=== PATIENT | female | born 1965 | race Caucasian/White ===

== ENCOUNTER 2020-02-09 10:33 | Emergency (ER) | payer OTHER, SELFPAY ==
--- NOTE | 2020-02-09 10:48 | ED.EAR ---
HPI - Ear Problem General Chief complaint: Ear Problems Stated complaint: lt ear pain Time Seen by Provider: 02/09/20 10:48 Source: patient Mode of arrival: ambulatory Limitations: language barrier History of Present Illness HPI Narrative: 54 y/o female presenting with left ear pain and swelling for the last 10 days. She denies injury, fever, chills, drainage. Hearing is slightly muffled. She has not taken anything for the pain. Related Data Previous Rx's Medication Instructions Recorded ciprofloxacin-hydrocortisone 3 drp OTIC (EARS) BID 7 Days ml 02/09/20 [Cipro HC] ciprofloxacin-hydrocortisone 3 drp OTIC (EARS) BID 7 Days #10 ml 02/09/20 [Cipro HC] ibuprofen 600 mg PO Q8H PRN #20 tab 02/09/20 Allergies Allergy/AdvReac Type Severity Reaction Status Date / Time No Known Allergies Allergy Unverified 01/14/20 16:38 [No Known Allergies*] none Allergy Unknown Uncoded 11/25/18 00:00 Review of Systems Review of Systems: Constitutional: No Fever, No Chills ENT/Mouth: No sore throat, No Rhinorrhea, No Swallowing Difficulty, + ear pain, +facial pain, No dental pain Cardiovascular: No Chest Pain, No SOB, No Orthopnea, No Edema Respiratory: No Cough, No Sputum, No Wheezing, No dyspnea Skin: No Skin Lesions, No rash Neuro: No Weakness, No Numbness, No Dizziness, + Headache Heme/Lymph: No Bruising, No Lymphadenopathy PMFSH Past Medical History Medical History Thyroid disorder Social History Social History Advance Directives: No Advance Directives Information Provided: Yes Physical Exam Vital Signs: Vital Signs: Vital Signs Temp Pulse Resp BP Pulse Ox 02/09/20 11:03 97.4 F 87 16 132/81 97 Body Mass Index 28.7 Appearance: Alert. Oriented X3. No acute distress. Ear exam: right ear normal, left ear with EAC swelling and erythema, tender pinna movement. TM normal. Neck: normal inspection, no lymphadenopathy. CVS: Normal heart rate and rhythm. Pulses normal. Respiratory: No respiratory distress. Skin: Skin warm and dry. Normal skin color. Normal skin turgor. No rashes. Extremities: Full ROM, no swelling Neuro: Oriented X 3. No motor deficit. No sensory deficit. Course Course Course Narrative: exam consistent with acute oxitis externa. no need for ear wick at this time. antibiotic drops with steroid sent to pharmacy. no TM perforation. stable for d/c. encouraged to f/u with her PCP. ear precautions discussed. Discharge Plan Discharge Clinical Impression: Otitis externa Qualifiers: Otitis externa type: diffuse Chronicity: acute Laterality: left Qualified Code(s): H60.312 - Diffuse otitis externa, left ear Patient Disposition: Home, Self-Care Instructions: Otitis Externa (ED) Additional Instructions: Do not get your ear wet for 1 week. If you have worsening pain, loss of hearing, fever, chills despite antibiotic drops call your doctor or come back to the ER for further evaluation. Prescriptions: New Cipro HC 0.2-1 % drops,suspension 3 drp otic (ears) BID 7 Days RF: 0 ibuprofen 600 mg tablet 600 mg PO Q8H PRN (Reason: pain) Qty: 20 RF: 0 Cipro HC 0.2-1 % drops,suspension 3 drp otic (ears) BID 7 Days Qty: 10 RF: 0 Interventions: ED Discharge Assessment Last Done: 02/09/20 11:33 Discharge Date/Time: 02/09/20 11:36
[2020-02-09 11:03] VITALS: BP 132/81; PULSE 87; RESP 16; TEMP 36.3; O2SAT 97; BMI 28.7
== END 2020-02-09 11:36 | disposition home or self-care (01) ==
PROVIDERS: Emergency Provider Emergency Medicine; PCP Internal Medicine
DX: H60.312 Diffuse otitis externa, left ear (principal)
CPT/HCPCS: 99283

== ENCOUNTER 2020-04-11 09:45 | Outpatient (REF) | payer OTHER, SELFPAY ==
[2020-04-11 10:57] LABS: Alanine Aminotransferase 16 U/L (0-31); Albumin Level 4.4 g/dL (3.5-5.0); Alkaline Phosphatase 99 U/L (39-117); Anion Gap 12 (12-20); Aspartate Amino Transferase 17 U/L (5-31); Bilirubin Total 0.4 mg/dL (0.0-1.0); Blood Urea Nitrogen 5 mg/dL (9-16); Calcium 9.2 mg/dL (8.4-10.2); Carbon Dioxide 29 mmol/L (22-29); Chloride 105 mmol/L (96-108); Cholesterol 208 mg/dL; Estimated Glomerular Filt Rate > 60; Glucose Fasting 109 mg/dL (60-99); HDL Cholesterol 38 mg/dL; LDL Cholesterol Calculated 121 mg/dl; Potassium 4.1 mmol/l (3.3-5.1); Sodium 142 mmol/L (135-145); Total Protein 7.2 g/dL (6.5-8.0); Triglycerides 249 mg/dL
[2020-04-11 11:11] LABS: TSH reflex Free T4 0.02 mIU/mL (0.32-4.0)
[2020-04-11 12:02] LABS: Free T4 (Free Thyroxine) 1.37 ng/dL (0.71-1.85)
== END 2020-04-11 09:46 | disposition home or self-care (01) ==
LOC: HO.LAB 09:45
PROVIDERS: Visit Provider Internal Medicine
DX: E78.2 Mixed hyperlipidemia (principal); E55.9 Vitamin D deficiency, unspecified; E06.3 Autoimmune thyroiditis
CPT/HCPCS: 80053; 80061; 82306; 84439; 84443

== ENCOUNTER 2020-04-19 10:56 | Outpatient (REF) | payer OTHER, SELFPAY ==
--- NOTE | 2020-04-19 11:00 | MM_ITS ---
EXAMINATION: MM SCREENING DIGITAL BREAST TOMOSYNTHESIS, BILATERAL CLINICAL INFORMATION: Screening. Asymptomatic. The lifetime risk of breast cancer based on the Tyrer-Cuzick Model is 7%. COMPARISON: Mammography: 04/14/2019, 04/08/2018, 05/13/2014 TECHNIQUE: Digital breast tomosynthesis is performed in both the craniocaudal and mediolateral oblique views along with computer-aided detection (CAD). Synthesized 2D images are generated from the tomosynthesis. FINDINGS: The breasts are heterogeneously dense, which may obscure small masses (ACR BI-RADS breast composition Category c). There are no significant masses, abnormal calcifications, or other abnormalities. No significant changes from prior studies. The axilla are unremarkable. MM/MM tomosynthesis screening BI IMPRESSION: No mammographic evidence of malignancy. ASSESSMENT: BI-RADS 1: Negative RECOMMENDATION: Routine annual mammography screening. This patient's information was entered into a reminder system with a target due date for their next mammogram.
== END 2020-04-19 10:57 | disposition home or self-care (01) ==
LOC: HO.MAMMO 10:56
PROVIDERS: PCP Internal Medicine; Visit Provider Internal Medicine
DX: Z12.31 Encounter for screening mammogram for malignant neoplasm of breast (principal)
CPT/HCPCS: 77063; 77067

== ENCOUNTER 2020-08-26 07:48 | Outpatient (REF) | payer OTHER, SELFPAY ==
[2020-08-26 09:19] LABS: Alanine Aminotransferase 22 U/L (0-31); Albumin Level 4.3 g/dL (3.5-5.0); Alkaline Phosphatase 107 U/L (39-117); Anion Gap 12 (12-20); Aspartate Amino Transferase 17 U/L (5-31); Bilirubin Total 0.6 mg/dL (0.0-1.0); Blood Urea Nitrogen 12 mg/dL (9-16); Calcium 9.6 mg/dL (8.4-10.2); Carbon Dioxide 28 mmol/L (22-29); Chloride 106 mmol/L (96-108); Cholesterol 250 mg/dL; Estimated Glomerular Filt Rate 54; Glucose Fasting 113 mg/dL (60-99); HDL Cholesterol 34 mg/dL; LDL Cholesterol Calculated 137 mg/dl; Potassium 4.3 mmol/L (3.3-5.1); Sodium 142 mmol/L (135-145); Total Protein 7.1 g/dL (6.5-8.0); Triglycerides 398 mg/dL
[2020-08-26 09:42] LABS: Thyroid Stimulating Hormone 0.57 uIU/mL (0.32-4.0)
[2020-08-31 10:11] LABS: Vitamin D 25-OH, D2 <4 ng/mL; Vitamin D 25-OH, D3 25 ng/mL; Vitamin D 25-OH, Total 25 ng/mL (30-100)
== END 2020-08-26 07:49 | disposition home or self-care (01) ==
LOC: HO.LAB 07:48
PROVIDERS: PCP Internal Medicine; Visit Provider Internal Medicine
DX: E78.2 Mixed hyperlipidemia (principal); E55.9 Vitamin D deficiency, unspecified; E03.9 Hypothyroidism, unspecified
CPT/HCPCS: 36415; 80053; 80061; 82306; 84443

== ENCOUNTER → 2020-11-02 10:03 | Outpatient (REF) | payer OTHER, SELFPAY ==
--- NOTE | 2020-11-02 10:30 | CA_ITS ---
Transthoracic Echocardiogram Patient (Last, First, Middle): Marya Hyatt, Gender: Female Date of : 1965 Age: 55 Procedure Date: 11/02/2020 Procedure Type: Transthoracic Echocardiogram Location: OP Height: 154.94 cm Weight: 73.48 kg BSA: 1.73 m2 Heart Rate: bpm BP: 146 / 88 mmHg Inspector Final Assembly Conveyor Line: Referring MD: Angelo Tan MD Symptoms: I42.9 NON ISCHEMIC CARDIOMYOPATHY Study Quality: Fair ECG Rhythm: Sinus Conclusions: - The left ventricular systolic function is mildly decreased. The visually estimated ejection fraction is between 45-50%. - No obvious valvular pathology seen on this study. Findings Left Ventricle Normal left ventricular cavity size. There is normal left ventricular wall thickness. The left ventricular systolic function is mildly decreased. The visually estimated ejection fraction is between 45-50%. There is mild global hypokinesis. E/E prime ratio is between 8 and 15 consistent with indeterminate filling pressures. Evidence suggests grade I (mild) diastolic dysfunction. Right Ventricle Normal right ventricular cavity size and systolic function. Atria The left atrium is normal in size. Aortic Valve There is a normal trileaflet aortic valve. There is no aortic valve stenosis. There is no aortic valve regurgitation. Mitral Valve There is mild anterior mitral leaflet thickening. There is trace mitral valve regurgitation. There is no mitral valve stenosis. Pulmonic Valve The pulmonic valve was not well visualized. Tricuspid Valve Normal tricuspid valve structure. There is trace tricuspid valve regurgitation. The pulmonary artery systolic pressure is normal. Great Vessels The aortic annulus, sinuses of valsalva, asc aorta, and aortic arch are normal in size. Venous The inferior vena cava is normal in size and collapses greater than 50% with inspiration. Pericardium/Pleural There is no evidence of pericardial effusion. Prior Study Comparison No significant change compared to prior study dated: 04/08/2018. Recommendations, Care & Conclusions No obvious valvular pathology seen on this study. Measurements 2D Linear Measurements RVIDd: 2.16 RVIDd Index: 1.25 IVSd: 1.15 0.6-0.9/0.6-1.0 cm LVIDd: 5.35 3.9-5.3/4.2-5.9 cm LVIDd Index: 3.09 2.4-3.2/2.2-3.1 cm/m2 LVIDs: 3.62 2.0-3.6 cm LVPWd: 0.92 0.7-1.1 cm Ao Root: 3.30 2.1-3.5 cm LA Diam: 3.00 2.7-3.8/3.0-4.0 cm LAIDs Index: 1.73 1.5-2.3 cm/m2 LV Mass: 265.78 67-162/88-224 g LV Mass Index: 153.63 43-95/49-115 g/m2 LVOT Diam: 2.10 3.0+(-)1.3 cm 2D Systolic Function EF 4C: 29.10 >55% EF 2C: 67.10 >55% EF BiP: 51.20 >55% Mitral Valve MV Pk E: 0.54 MV PK A: 0.46 MV Decel Time: 294.00 E/A: 1.20 E'Lateral: 5.11 E'Medial: 4.46 E/E' Med: 12.00 E/E' Lat: 10.50 Aortic Valve AoV Pk Figueroa: 1.04 AoV Mn Figueroa: 0.76 AoV VTI: 0.22 AoV Pk Grad: 4.00 Aov Mn Grad: 3.00 JAMES Cont.VTI: 2.07 LVOT LVOT Pk Figueroa: 0.68 LVOT Mn Figueroa: 0.43 LVOT VTI: 0.13 LVOT Pk Grad: 2.00 LVOT Mn Grad: 1.00 LVOT Diam: 2.10 LVOT Area: 3.46 Diastolic Function MV Pk E: 0.54 MV Pk A: 0.46 E/A: 1.20 E'Medial: 4.46 E/E' Med: 12.00 E' Laterial: 5.11 E/E' Lat: 10.50 Tricuspid Valve TR Pk Figueroa: 1.99 TR Pk Grad: 16.00 RA Press: 3.00 RVSP: 19.00 Great Vessels Aorta Ao Root-2D: 3.30 2.0-3.7 cm Ao Asc: 3.30 2.1-3.4 cm Ao Arch: 2.60 Updated in Other Vendor System with Status of Final Angelo Tan MD electronically signed on 11/03/2020 11:30:06 AM with status of Final
== END ==
LOC: HO.CARD 10:03
PROVIDERS: Visit Provider Internal Medicine
DX: I42.9 Cardiomyopathy, unspecified (principal)
CPT/HCPCS: 93306

== ENCOUNTER → 2020-11-28 12:17 | Outpatient (BNVA) | payer OTHER, SELFPAY | PROVIDERS: PCP Internal Medicine; Referring Provider Internal Medicine; Visit Provider Internal Medicine | DX: I10 Essential (primary) hypertension (principal); I42.8 Other cardiomyopathies; E03.9 Hypothyroidism, unspecified; E55.9 Vitamin D deficiency, unspecified; E78.2 Mixed hyperlipidemia; F17.210 Nicotine dependence, cigarettes, uncomplicated; Z79.899 Other long term (current) drug therapy | CPT/HCPCS: 93005; 99212 ==

== ENCOUNTER 2020-12-28 08:26 | Outpatient (REF) | payer OTHER, SELFPAY ==
--- NOTE | ~2020-12-28 | FL_ITS ---
EXAMINATION: XR GI SERIES CLINICAL INFORMATION: Gastroesophageal reflux disease without esophagitis. COMPARISON: None. TECHNIQUE: Air-contrast upper GI examination. FINDINGS: There is normal elevation of the soft palate while saying candy . There is normal apposition of the focal cords when saying E . There is no evidence of nasopharyngeal reflux or tracheal aspiration. Cricopharyngeal hypertrophy is present without evidence of Zenker's diverticulum. There is normal esophageal motility without mucosal irregularity. No persistent stricture was evident. No gastroesophageal reflux was seen including with water siphon test. There are some thickened folds with some diminished distensibility seen involving the distal antrum. No definite ulceration was appreciated. There was no delay in gastric emptying. The prominent folds extend into the base of the duodenum. The remainder of the duodenal sweep appeared unremarkable. FLUOROSCOPY TIME: 2.6 minutes. DOSE AREA PRODUCT: 12.017 Gy-cm2 (nieves-centimeter squared). FL/FL upper GI series IMPRESSION: No gastroesophageal reflux elicited during the study. Region of some diminished distensibility with prominent folds in the antrum extending into the duodenal bulb. No definite ulceration is appreciated. Above findings could be related to antritis or less likely infiltrative process. Follow-up upper GI examination or endoscopy would be of help for future follow-up if patient remains symptomatic.
== END 2020-12-28 08:27 | disposition home or self-care (01) ==
LOC: HO.XRAY 08:26
PROVIDERS: PCP Internal Medicine; Visit Provider Internal Medicine
DX: K21.9 Gastro-esophageal reflux disease without esophagitis (principal)
CPT/HCPCS: 74240

== ENCOUNTER 2021-03-14 08:50 | Outpatient (REF) | payer OTHER, SELFPAY ==
[2021-03-14 10:05] LABS: Alanine Aminotransferase 23 U/L (0-31); Albumin Level 4.4 g/dL (3.5-5.0); Alkaline Phosphatase 98 U/L (39-117); Anion Gap 12 (12-20); Aspartate Amino Transferase 16 U/L (5-31); Bilirubin Total 0.8 mg/dL (0.0-1.0); Blood Urea Nitrogen 11 mg/dL (9-16); Calcium 10.1 mg/dL (8.4-10.2); Carbon Dioxide 29 mmol/L (22-29); Chloride 105 mmol/L (96-108); Cholesterol 224 mg/dL; Estimated Glomerular Filt Rate 48; Glucose Fasting 118 mg/dL (60-99); HDL Cholesterol 34 mg/dL; LDL Cholesterol Calculated 124 mg/dl; Sodium 142 mmol/L (135-145); Triglycerides 332 mg/dL
[2021-03-14 10:26] LABS: TSH reflex Free T4 0.89 uIU/mL (0.32-4.0)
[2021-03-18 13:41] LABS: Vitamin D 25-OH, D2 <4 ng/mL; Vitamin D 25-OH, D3 20 ng/mL; Vitamin D 25-OH, Total 20 ng/mL (30-100)
== END 2021-03-14 08:51 | disposition home or self-care (01) ==
LOC: HO.LAB 08:50
PROVIDERS: PCP Internal Medicine; Visit Provider Internal Medicine
DX: E03.9 Hypothyroidism, unspecified (principal); E78.2 Mixed hyperlipidemia; E55.9 Vitamin D deficiency, unspecified
CPT/HCPCS: 36415; 80053; 80061; 82306; 84443

== ENCOUNTER 2021-05-08 08:34 | Outpatient (REF) | payer OTHER, SELFPAY ==
[2021-05-08 12:00] LABS: Binax Internal Control QC Valid; Binax Now Covid-19 Ag Positive (Negative)
== END 2021-05-08 08:35 | disposition home or self-care (01) ==
LOC: HO.LAB 08:34
PROVIDERS: Visit Provider Internal Medicine
DX: Z20.822 Contact with and (suspected) exposure to COVID-19 (principal)
CPT/HCPCS: 36415; C9803

== ENCOUNTER 2021-07-24 08:36 | Outpatient (REF) | payer OTHER, SELFPAY ==
[2021-07-24 09:55] LABS: Alanine Aminotransferase 33 U/L (0-31); Albumin Level 4.4 g/dL (3.5-5.0); Alkaline Phosphatase 83 U/L (39-117); Anion Gap 11 (12-20); Aspartate Amino Transferase 23 U/L (5-31); Bilirubin Total 0.8 mg/dL (0.0-1.0); Blood Urea Nitrogen 10 mg/dL (9-16); Calcium 9.4 mg/dL (8.4-10.2); Carbon Dioxide 28 mmol/L (22-29); Chloride 106 mmol/L (96-108); Cholesterol 230 mg/dL; Estimated Glomerular Filt Rate 55; Glucose Fasting 112 mg/dL (60-99); HDL Cholesterol 33 mg/dL; LDL Cholesterol Calculated 151 mg/dl; Potassium 4.1 mmol/L (3.3-5.1); Sodium 141 mmol/L (135-145); Total Protein 6.9 g/dL (6.5-8.0); Triglycerides 231 mg/dL
[2021-07-24 10:18] LABS: Thyroid Stimulating Hormone 0.49 uIU/mL (0.32-4.0)
[2021-07-28 13:06] LABS: Vitamin D 25-OH, D2 <4 ng/mL; Vitamin D 25-OH, D3 12 ng/mL; Vitamin D 25-OH, Total 12 ng/mL (30-100)
== END 2021-07-24 08:37 | disposition home or self-care (01) ==
LOC: HO.LAB 08:36
PROVIDERS: PCP Internal Medicine; Visit Provider Internal Medicine
DX: E78.5 Hyperlipidemia, unspecified (principal); I10 Essential (primary) hypertension; E03.9 Hypothyroidism, unspecified; E55.9 Vitamin D deficiency, unspecified
CPT/HCPCS: 36415; 80053; 80061; 82306; 84443

== ENCOUNTER → 2021-08-03 10:12 | Outpatient (REF) | payer OTHER, SELFPAY ==
--- NOTE | ~2021-08-03 | XR_ITS ---
EXAMINATION: XR CHEST CLINICAL INFORMATION: Dyspnea COMPARISON: 08/31/2014 TECHNIQUE: 2 views of the chest were obtained. FINDINGS: The lungs are well expanded. There is no focal consolidation, edema, or effusion. No pneumothorax. The cardiomediastinal silhouette is within normal limits. No acute osseous abnormality. Mild degenerative change of the spine. XR/XR chest 2V IMPRESSION: Clear lungs.
--- NOTE | ~2021-08-03 | XR_ITS ---
EXAMINATION: XR KNEE, RIGHT CLINICAL INFORMATION: Right knee pain COMPARISON: 01/05/2019 TECHNIQUE: Four views of the right knee. This includes upright AP view. FINDINGS: No fracture or subluxation. Mild medial compartment joint space narrowing. Small marginal osteophytes. No joint effusion. Enthesophyte formation of the patella. The soft tissues are unremarkable. XR/XR knee RT 2V IMPRESSION: Mild degenerative change of the medial compartment. Similar to prior.
--- NOTE | 2021-08-03 10:18 | ECG_ITS ---
Test Reason : PRECORDIAL PAIN Blood Pressure : / mmHG Vent. Rate : 056 BPM Atrial Rate : 056 BPM P-R Int : 150 ms QRS Dur : 094 ms QT Int : 440 ms P-R-T Axes : 070 -01 012 degrees QTc Int : 424 ms Sinus bradycardia T wave abnormality, consider anterior ischemia Abnormal ECG When compared to the previous EKG of No significant changes seen Referred By: Natalia Akbar Electronically Signed By:CHANCE LEIVA MD
== END ==
LOC: HO.CARD 10:12
PROVIDERS: PCP Internal Medicine; Visit Provider Internal Medicine
DX: R07.2 Precordial pain (principal); R06.00 Dyspnea, unspecified; M25.561 Pain in right knee
CPT/HCPCS: 71046; 73560; 93005

== ENCOUNTER → 2021-08-22 10:45 | Outpatient (BNVA) | payer OTHER, SELFPAY | PROVIDERS: PCP Internal Medicine; Visit Provider Obstetrics & Gynecology | DX: I42.8 Other cardiomyopathies (principal); I10 Essential (primary) hypertension; R07.2 Precordial pain; F17.210 Nicotine dependence, cigarettes, uncomplicated; Z01.419 Encounter for gynecological examination (general) (routine) without abnormal findings | CPT/HCPCS: 99212 ==

== ENCOUNTER 2021-08-25 10:34 | Outpatient (REF) | payer OTHER, SELFPAY ==
--- NOTE | ~2021-08-25 | MM_ITS ---
EXAMINATION: MM SCREENING DIGITAL BREAST TOMOSYNTHESIS, BILATERAL CLINICAL INFORMATION: Screening. Asymptomatic. The lifetime risk of breast cancer based on the Tyrer-Cuzick Model is 6%. COMPARISON: Mammography: 04/19/2020, 04/14/2019, 04/08/2018 TECHNIQUE: Digital breast tomosynthesis is performed in both the craniocaudal and mediolateral oblique views along with computer-aided detection (CAD). Synthesized 2D images are generated from the tomosynthesis. FINDINGS: The breasts are heterogeneously dense, which may obscure small masses (ACR BI-RADS breast composition Category c). There are no significant masses, abnormal calcifications, or other abnormalities. Parenchymal pattern is similar to prior studies. The axilla and skin contours are unremarkable. MM/MM tomosynthesis screening BI IMPRESSION: No mammographic evidence of malignancy. ASSESSMENT: BI-RADS 1: Negative RECOMMENDATION: Routine annual mammography screening. This patient's information was entered into a reminder system with a target due date for their next mammogram.
== END 2021-08-25 10:35 | disposition home or self-care (01) ==
LOC: HO.MAMMO 10:34
PROVIDERS: Visit Provider Internal Medicine
DX: Z12.31 Encounter for screening mammogram for malignant neoplasm of breast (principal)
CPT/HCPCS: 77063; 77067

== ENCOUNTER 2021-12-19 08:13 | Outpatient (REF) | payer OTHER, SELFPAY ==
[2021-12-19 09:42] LABS: Alanine Aminotransferase 23 U/L (0-31); Albumin Level 4.2 g/dL (3.5-5.0); Alkaline Phosphatase 86 U/L (39-117); Anion Gap 13 (12-20); Aspartate Amino Transferase 16 U/L (5-31); Bilirubin Total 0.7 mg/dL (0.0-1.0); Blood Urea Nitrogen 7 mg/dL (9-16); Calcium 9.4 mg/dL (8.4-10.2); Carbon Dioxide 29 mmol/L (22-29); Chloride 105 mmol/L (96-108); Cholesterol 228 mg/dL; Estimated Glomerular Filt Rate 59; Glucose Fasting 110 mg/dL (60-99); HDL Cholesterol 31 mg/dL; Potassium 4.2 mmol/L (3.3-5.1); Sodium 143 mmol/L (135-145); Total Protein 6.9 g/dL (6.5-8.0); Triglycerides 494 mg/dL
[2021-12-19 10:04] LABS: Thyroid Stimulating Hormone 0.55 uIU/mL (0.32-4.0)
[2021-12-21 04:45] LABS: NT-proBNP 40 pg/mL
== END 2021-12-19 08:14 | disposition home or self-care (01) ==
LOC: HO.LAB 08:13
PROVIDERS: PCP Internal Medicine; Visit Provider Internal Medicine
DX: E03.9 Hypothyroidism, unspecified (principal); I10 Essential (primary) hypertension; I42.8 Other cardiomyopathies; E78.5 Hyperlipidemia, unspecified
CPT/HCPCS: 36415; 80053; 80061; 83880; 84443

== ENCOUNTER 2022-01-16 11:09 | Outpatient (REF) | payer OTHER, SELFPAY ==
--- NOTE | ~2022-01-16 | XR_ITS ---
EXAMINATION: XR ABDOMEN KUB CLINICAL INDICATION: Dorsalgia COMPARISON: None TECHNIQUE: AP view of the abdomen. FINDINGS: The bowel gas pattern is normal with no evidence of ileus or obstruction. There is moderate stool burden present within the transverse and right colon. No unusual soft tissue calcifications are noted. The bones are unremarkable. XR/XR KUB IMPRESSION: No significant abnormality identified.
== END 2022-01-16 11:10 | disposition home or self-care (01) ==
LOC: HO.XRAY 11:09
PROVIDERS: PCP Internal Medicine; Visit Provider Internal Medicine
DX: M54.9 Dorsalgia, unspecified (principal)
CPT/HCPCS: 74018

== ENCOUNTER → 2022-02-01 07:57 | Outpatient (BNVA) | payer OTHER, SELFPAY | PROVIDERS: PCP Internal Medicine; Referring Provider Internal Medicine; Visit Provider Internal Medicine | DX: R07.2 Precordial pain (principal); I42.8 Other cardiomyopathies; I10 Essential (primary) hypertension; Z79.899 Other long term (current) drug therapy | CPT/HCPCS: 93005; 99212 ==

== ENCOUNTER 2022-02-09 10:04 | Outpatient (REF) | payer OTHER, SELFPAY ==
[2022-02-09 11:39] LABS: Anion Gap 14 (12-20); Blood Urea Nitrogen 13 mg/dL (9-16); Carbon Dioxide 26 mmol/L (22-29); Chloride 107 mmol/L (96-108); Estimated Glomerular Filt Rate > 60; Glucose Random 102 mg/dL (60-115); Potassium 4.1 mmol/L (3.3-5.1); Sodium 143 mmol/L (135-145)
== END 2022-02-09 10:05 | disposition home or self-care (01) ==
LOC: HO.LAB 10:04
PROVIDERS: PCP Internal Medicine; Visit Provider Internal Medicine
DX: I10 Essential (primary) hypertension (principal)
CPT/HCPCS: 36415; 80048

== ENCOUNTER 2022-02-26 10:01 | Outpatient (REF) | payer OTHER, SELFPAY ==
[2022-02-27 13:45] LABS: H Pylori Breath Test Negative (Negative)
== END 2022-02-26 10:02 | disposition home or self-care (01) ==
LOC: HO.LNP 10:01
PROVIDERS: PCP Internal Medicine; Visit Provider Physician Assistant
DX: K21.9 Gastro-esophageal reflux disease without esophagitis (principal); A04.8 Other specified bacterial intestinal infections; R10.13 Epigastric pain; Z86.010 Personal history of colon polyps
CPT/HCPCS: 83013; 99202; 99212

== ENCOUNTER → 2022-03-02 08:05 | Outpatient (REF) | payer OTHER, SELFPAY ==
--- NOTE | ~2022-03-02 | NM_ITS ---
Exercise Myocardial perfusion study Indication: Precordial chest pain to evaluate for myocardial ischemia Technique: The patient was brought in for an exercise perfusion study on 03/02/2022. Patient performed exercise as per Gage protocol and was injected 25 mCi of sestamibi was given intravenously one target HR was achieved. Images were obtained using the SPECT gamma camera interlaced with the gating device. Images were obtained in supine position. Resting perfusion study was performed on 03/05/2022. Patient was administered 25 mCi of sestamibi intravenously at rest. Images were then obtained in supine position. Images obtained with and without CT attenuation. Total DLP 85 mGy-cm. Images were processed with the software and compared side to side in short axis, horizontal long axis and vertical long axis views. Findings: The stress perfusion study showed non attenuated images show normal uptake of radiotracer in all segments of LV myocardium. Attenuation corrected images show mildly reduced uptake in the apex of the LV myocardium.. The gated study shows normal LV systolic function with calculated LVEF of 55%. LV cavity is normal in size. The gated study shows normal systolic wall thickening and contraction of all segments. There is no transient ischemic dilation. Resting study shows no change in perfusion pattern compared to stress perfusion study. Gating at rest reveals normal systolic wall motion with ejection fraction at greater than 50%. The findings are consistent with normal myocardial perfusion. NM/NM payam perf SPECT rest & str Impression: 1. Normal myocardial perfusion 2. Gated LVEF is 55% 3. Transient ischemic dilatation not present Stress EKG is positive for ischemia
--- NOTE | 2022-03-02 08:08 | CA_ITS ---
Acquisition Time: 2022-03-02 09:26:49 Total Exercise Time: 00:07:42 Test Indications: Abnormal ECG Medications: SEE H Protocol: SANDRO Max HR: 136 BPM 82% of Pred: 164 BPM Max BP: 160/098 mmHG Max Work Load: 7.5 METS Exercise stress test with exercise 7 min 42 sec of Sandro protocol ( through stage 2, then incline increased to 14% for last 1 min 42 sec), achieving 82% MPHR, with mild to moderate sob and fatigue and need to stop, no chest discomfot, with isolated PVC, with EKG changes meeting criteria for ischemia. EKGs gradually returned to baseline in recovery. Nuclear images pending. Test reviewed with Dr Tan, Referred By: Angelo Tan Overread By: JACQUI BANKS
--- NOTE | 2022-03-02 08:08 | CA_ITS ---
Transthoracic Echocardiogram Patient (Last, First, Middle): Marya Hyatt, Gender: Female Date of : 1965 Age: 56 Procedure Date: 03/02/2022 Procedure Type: Transthoracic Echocardiogram Location: OP Height: 154.94 cm Weight: 70.76 kg BSA: 1.70 m2 Heart Rate: 66 bpm BP: 142 / 80 mmHg Postpartum Rn: SB Referring MD: Angelo Tan MD Symptoms: R07.2 - Precordial pain Study Quality: Adequate w contrast ECG Rhythm: Sinus Conclusions: - The left ventricular systolic function is low normal. The calculated ejection fraction is 53% by biplane method. - No obvious valvular pathology seen on this study. Findings Procedure Information Contrast agent, definity, is being given per protocol without apparent complications. Left Ventricle Normal left ventricular cavity size. There is mildly increased left ventricular wall thickness. The left ventricular systolic function is low normal. The calculated ejection fraction is 53% by biplane method. There is no evidence of regional wall motion abnormalities. Evidence suggests grade I (mild) diastolic dysfunction. Right Ventricle Normal right ventricular cavity size and systolic function. Atria Both atria are normal in size. Aortic Valve There is a normal trileaflet aortic valve. There is no aortic valve stenosis. There is no aortic valve regurgitation. Mitral Valve The mitral valve appears normal. There is trace mitral valve regurgitation. There is no mitral valve stenosis. Pulmonic Valve The pulmonic valve is likely normal. Tricuspid Valve Normal tricuspid valve structure. There is trace tricuspid valve regurgitation. There is no evidence of pulmonary hypertension. Great Vessels The asc aorta is normal in size. Venous The inferior vena cava is normal in size and collapses greater than 50% with inspiration. Pericardium/Pleural There is no evidence of pericardial effusion. Prior Study Comparison No significant change compared to prior study dated: 11/02/2020. Recommendations, Care & Conclusions No obvious valvular pathology seen on this study. Measurements 2D Linear Measurements IVSd: 1.21 0.6-0.9/0.6-1.0 cm LVIDd: 4.56 3.9-5.3/4.2-5.9 cm LVIDd Index: 2.68 2.4-3.2/2.2-3.1 cm/m2 LVIDs: 3.08 2.0-3.6 cm LVPWd: 1.04 0.7-1.1 cm LA Diam: 2.90 2.7-3.8/3.0-4.0 cm LAIDs Index: 1.71 1.5-2.3 cm/m2 LV Mass: 229.84 67-162/88-224 g LV Mass Index: 135.20 43-95/49-115 g/m2 LVOT Diam: 2.40 3.0+(-)1.3 cm 2D Systolic Function EF 4C: 43.50 >55% EF 2C: 57.40 >55% EF BiP: 52.80 >55% Mitral Valve MV Pk E: 0.62 MV PK A: 0.56 MV Decel Time: 169.00 E/A: 1.10 E'Lateral: 5.55 E'Medial: 3.68 E/E' Med: 17.00 E/E' Lat: 11.20 PHT: 49.00 MVA PHT: 4.[address] [place]: 3.70 Aortic Valve AoV Pk Figueroa: 1.22 AoV Mn Figueroa: 0.89 AoV VTI: 0.27 AoV Pk Grad: 6.00 Aov Mn Grad: 3.00 JAMES Cont.VTI: 3.06 LVOT LVOT Pk Figueroa: 0.78 LVOT Mn Figueroa: 0.58 LVOT VTI: 0.18 LVOT Pk Grad: 2.00 LVOT Mn Grad: 1.00 LVOT Diam: 2.40 LVOT Area: 4.52 Diastolic Function MV Pk E: 0.62 MV Pk A: 0.56 E/A: 1.10 E'Medial: 3.68 E/E' Med: 17.00 E' Laterial: 5.55 E/E' Lat: 11.20 Right Ventricle TAPSE (mm): 16.60 TVS' Figueroa: 11.00 Tricuspid Valve TR Pk Figueroa: 2.10 TR Pk Grad: 18.00 RA Press: 3.00 RVSP: 21.00 Great Vessels Aorta Sinus of Valsalva: 3.30 2.0-3.5 cm Ao Asc: 3.70 2.1-3.4 cm Pulmonary Valve PV Pk Figueroa: 0.68 Peak PV Grad: 2.00 Updated in Other Vendor System with Status of Final Angelo Tan MD electronically signed on 03/03/2022 1:36:09 PM with status of Final
== END ==
LOC: HO.CARD 08:05
PROVIDERS: PCP Internal Medicine; Visit Provider Internal Medicine
DX: R07.2 Precordial pain (principal)
CPT/HCPCS: 78452; 93017; 93306; A9500; Q9957

== ENCOUNTER 2022-06-21 07:53 | Outpatient (REF) | payer OTHER, SELFPAY ==
[2022-06-21 09:13] LABS: Alanine Aminotransferase 24 U/L (0-31); Albumin Level 4.3 g/dL (3.5-5.0); Alkaline Phosphatase 95 U/L (39-117); Anion Gap 13 (12-20); Aspartate Amino Transferase 18 U/L (5-31); Bilirubin Total 0.7 mg/dL (0.0-1.0); Blood Urea Nitrogen 9 mg/dL (9-16); Calcium 9.5 mg/dL (8.4-10.2); Carbon Dioxide 29 mmol/L (22-29); Chloride 106 mmol/L (96-108); Cholesterol 238 mg/dL; Estimated Glomerular Filt Rate 51; Glucose Fasting 133 mg/dL (60-99); HDL Cholesterol 33 mg/dL; LDL Cholesterol Calculated 169 mg/dl; Sodium 144 mmol/L (135-145); Triglycerides 181 mg/dL
[2022-06-21 09:28] LABS: Thyroid Stimulating Hormone 1.78 uIU/mL (0.32-4.0)
== END 2022-06-21 07:54 | disposition home or self-care (01) ==
LOC: HO.LAB 07:53
PROVIDERS: PCP Internal Medicine; Visit Provider Internal Medicine
DX: E78.2 Mixed hyperlipidemia (principal); E78.5 Hyperlipidemia, unspecified; E03.9 Hypothyroidism, unspecified; I10 Essential (primary) hypertension
CPT/HCPCS: 36415; 80053; 80061; 84443

== ENCOUNTER → 2022-08-23 10:27 | Outpatient (BNVA) | payer OTHER, SELFPAY | PROVIDERS: PCP Internal Medicine; Referring Provider Internal Medicine; Visit Provider Internal Medicine | DX: I42.8 Other cardiomyopathies (principal); I10 Essential (primary) hypertension; R07.2 Precordial pain | CPT/HCPCS: 99212 ==

== ENCOUNTER → 2022-08-27 09:20 | Outpatient (BNVA) | payer OTHER, SELFPAY | PROVIDERS: PCP Internal Medicine; Visit Provider Obstetrics & Gynecology ==

== ENCOUNTER 2022-09-12 09:39 | Outpatient (REF) | payer OTHER, SELFPAY ==
--- NOTE | ~2022-09-12 | MM_ITS ---
EXAMINATION: MM SCREENING DIGITAL BREAST TOMOSYNTHESIS, BILATERAL CLINICAL INFORMATION: Screening. Asymptomatic. The lifetime risk of breast cancer based on the Tyrer-Cuzick Model is 6.4%. COMPARISON: Mammography: 08/25/2021 and studies dating back to 05/13/2014. TECHNIQUE: Digital breast tomosynthesis is performed in both the craniocaudal and mediolateral oblique views along with computer-aided detection (CAD). Synthesized 2D images are generated from the tomosynthesis. FINDINGS: The breasts are heterogeneously dense, which may obscure small masses (ACR BI-RADS breast composition Category c). This is stable parenchymal pattern of the left breast with no new abnormal dominant mass or suspicious grouping of microcalcifications identified. About the lateral aspect of the right breast approximately 3 cm from the nipple there is a circumscribed density with what appears be a single calcification measuring 4 x 3 mm in size. Recommend spot compression view and possible ultrasound if the lesion persists. MM/MM tomosynthesis screening BI IMPRESSION: Right breast density for further evaluation. ASSESSMENT: BI-RADS 0: Incomplete - Need Additional Imaging Evaluation RECOMMENDATION: 1. Additional views of the right breast. 2. Targeted ultrasound if warranted after review of the additional views. 3. Radiology department staff will contact the patient for additional imaging. This patient's information was entered into a reminder system with a target due date for their next mammogram.
== END 2022-09-12 09:40 | disposition home or self-care (01) ==
LOC: HO.MAMMO 09:39
PROVIDERS: PCP Internal Medicine; Visit Provider Internal Medicine
DX: Z12.31 Encounter for screening mammogram for malignant neoplasm of breast (principal)
CPT/HCPCS: 77063; 77067

== ENCOUNTER 2022-09-14 13:48 | Outpatient (REF) | payer OTHER, SELFPAY ==
--- NOTE | ~2022-09-14 | CT_ITS ---
EXAMINATION: CT CHEST SCREENING CLINICAL INFORMATION: 42 pack year history. Current smoker. COMPARISON: Previous chest x-ray July 2021 TECHNIQUE: Multidetector volumetric CT imaging of the chest is performed without contrast using low dose technique. Additional 2D coronal and sagittal reformatted images and axial 3D maximum intensity projection (MIP) images are generated on the CT workstation. This CT examination was performed using dose optimization techniques as appropriate, variously including the following: *Automated exposure control *Adjustment of mA and/or kV according to patient size (this includes techniques or standardized protocols for targeted exams where dose is matched to indication/reason for exam; i.e. extremities or head) *Use of iterative reconstruction technique DLP: 51 mGy-cm FINDINGS: LUNGS: Mild emphysema. 3 mm left upper lobe nodule axial image 103 series 5. 2 x 5 mm peripheral or subpleural right lower lobe nodule adjacent to the major fissure and peripheral or subpleural 3 mm right middle lobe nodule probably representing subpleural lymph nodes. 3 mm peripheral or subpleural left lower lobe nodule axial image 336 series 5 probably representing a subpleural lymph node. Increased peripheral attenuation and interstitial markings questionable for mild interstitial disease. Scarring or subsegmental atelectasis in the right middle lobe. MEDIASTINUM: The mediastinum is normal. CORONARY ARTERY CALCIFICATION: None visualized on this study. PLEURA: There is no pleural effusion. No pleural mass or thickening. AXILLA: No lymphadenopathy. UPPER ABDOMEN: Fatty infiltration of the liver. OSSEOUS STRUCTURES: Degenerative changes of the spine. CT/CT lung screening IMPRESSION: Mild emphysema. Question mild peripheral interstitial lung disease. 3 mm left upper lobe nodule. ASSESSMENT: Lung-RADS category 2: Benign RECOMMENDATION: Annual low-dose chest CT follow-up recommended.
== END 2022-09-14 13:49 | disposition home or self-care (01) ==
LOC: HO.CT 13:48
PROVIDERS: PCP Internal Medicine; Visit Provider Physician Assistant Medical
DX: Z12.2 Encounter for screening for malignant neoplasm of respiratory organs (principal); F17.210 Nicotine dependence, cigarettes, uncomplicated
CPT/HCPCS: 71271; G0296

== ENCOUNTER 2022-09-21 07:44 | Outpatient (REF) | payer OTHER, SELFPAY ==
--- NOTE | ~2022-09-21 | MM_ITS ---
EXAMINATION: MM DIAGNOSTIC DIGITAL BREAST TOMOSYNTHESIS, RIGHT BREAST ULTRASOUND CLINICAL INFORMATION: Circumscribed density, 3 cm from the nipple, lateral aspect of the right breast. COMPARISON: MAMMOGRAPHY: 09/12/2022 and studies dating back to 05/13/2014 TECHNIQUE: Digital breast tomosynthesis is performed. 2D images are generated from the tomosynthesis. The following views are obtained: Spot compression views of the right breast in craniocaudal and mediolateral oblique projections. Targeted right breast ultrasound. FINDINGS: The breasts are heterogeneously dense, which may obscure small masses (ACR BI-RADS breast composition Category c). Additional views demonstrate a well-circumscribed approximately 4 x 5 mm density with a single calcification at approximately the 9 o'clock position, 3 cm from the nipple. Targeted ultrasound evaluation demonstrates a simple cyst with an anechoic lumen, smooth back wall and increased through sound transmission measuring approximately 6 x 3 x 5 mm in size. Results are discussed with the patient at time of visit. MM/MM tomosynthesis added views R IMPRESSION: Circumscribed density within the lateral aspect of the right breast corresponds to a simple cyst. ASSESSMENT: BI-RADS 2: Benign RECOMMENDATION: Routine annual mammography screening. This patient's information was entered into a reminder system with a target due date for their next mammogram.
== END 2022-09-21 07:45 | disposition home or self-care (01) ==
LOC: HO.MAMMO 07:44
PROVIDERS: PCP Internal Medicine; Visit Provider Obstetrics & Gynecology
DX: R92.2 Inconclusive mammogram (principal)
CPT/HCPCS: 76642; 77061; 77065

== ENCOUNTER 2022-11-14 08:33 | Outpatient (REF) | payer OTHER, SELFPAY ==
[2022-11-14 09:33] LABS: Alanine Aminotransferase 18 U/L (0-31); Albumin Level 4.2 g/dL (3.5-5.0); Alkaline Phosphatase 95 U/L (39-117); Anion Gap 11 (12-20); Aspartate Amino Transferase 17 U/L (5-31); Bilirubin Total 0.8 mg/dL (0.0-1.0); Blood Urea Nitrogen 10 mg/dL (9-16); Calcium 9.5 mg/dL (8.4-10.2); Carbon Dioxide 29 mmol/L (22-29); Chloride 105 mmol/L (96-108); Cholesterol 165 mg/dL; Estimated Glomerular Filt Rate 55; Glucose Fasting 135 mg/dL (60-99); HDL Cholesterol 34 mg/dL; LDL Cholesterol Calculated 90 mg/dl; Potassium 3.7 mmol/L (3.3-5.1); Sodium 141 mmol/L (135-145); Total Protein 7.2 g/dL (6.5-8.0); Triglycerides 208 mg/dL
[2022-11-14 09:49] LABS: Thyroid Stimulating Hormone 2.99 uIU/mL (0.32-4.0)
== END 2022-11-14 08:34 | disposition home or self-care (01) ==
LOC: HO.LAB 08:33
PROVIDERS: PCP Internal Medicine; Visit Provider Internal Medicine
DX: E78.5 Hyperlipidemia, unspecified (principal); R73.02 Impaired glucose tolerance (oral); E03.9 Hypothyroidism, unspecified
CPT/HCPCS: 36415; 80053; 80061; 84443

== ENCOUNTER 2022-11-21 13:08 | Outpatient (AMB) | payer OTHER, SELFPAY ==
[2022-11-21 13:13] VITALS: BP 152/90; BMI 30.2
--- NOTE | 2022-11-21 13:13 | A.OFFPC_ITS ---
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: No Accompanied by: Self / Same As Patient Allergies No Known Allergies [No Known Allergies*] Allergy (Verified 11/21/22 13:24) Medication List - Last Reconciled 11/21/22 by Natalia Akbar MD aspirin 81 mg PO DAILY 90 days atorvastatin 80 mg PO BEDTIME 90 days blood pressure monitor As directed blood pressure test kit-large ([facility] Blood Pressure Monitor kit) As directed calcium carbonate 600 mg PO BID 90 days carvedilol 25 mg PO BID 90 days cholecalciferol (vitamin D3) 50 mcg PO DAILY 90 days fenofibrate 54 mg PO DAILY levothyroxine 150 mcg PO DAILY lisinopril 10 mg PO DAILY omeprazole 20 mg PO DAILY Tobacco use date assessed: 07/16/22 Dental Screening Dental Screen Date: 11/21/22 Did you have a dental visit in the last 12 months?: No Did you have a dental problem in the last 6 months where you did not have access to dental care?: No Was dental information given to patient?: Patient declined HPI HPI Comments History of Present Illness Details This is a 57-year-old female with nonischemic cardiomyopathy that comes today for her physical exam. Pap smear was 2018 and was negative. Last colonoscopy was 2018 showing tubular adenoma and next colonoscopy should be 2023. Mammogram was done this year which was repeated and was normal. Last echocardiogram was February 2022 with ejection fraction of 53%. She denies any chest pain or shortness of breath. No leg swelling. Has not gain 5 lb in a week. Labs were discussed. [facility] Medical History (Updated 11/21/22 @ 13:38 by Natalia Akbar MD) Abnormal EKG Dyspnea Essential hypertension GERD (gastroesophageal reflux disease) History of colon polyps Hypothyroidism Hypovitaminosis D Mixed hyperlipidemia NICM (nonischemic cardiomyopathy) Nicotine dependence, cigarettes, uncomplicated Surgical History History of colonoscopy History of tubal ligation Family History Father CVD (cardiovascular disease) Mother CVD (cardiovascular disease) Hypertension Maternal Grandmother No problems noted. Maternal Grandfather No problems noted. Paternal Grandmother No problems noted. Paternal Grandfather No problems noted. Social History Housing: Apartment Alcohol intake: never Patient Tobacco Use Status: Current everyday Tobacco user Tobacco use type: Cigarette Cigarettes Per Day: 7 Years Smoked: onset 15yo, 1/2 x 42yrs, 20+pyh e-Cigarette/Vaping Use: Never Used Second Hand Smoke Exposure: No service: No Current occupational status: unemployed Cognitive needs: No Hearing needs: No Vision needs: No Female Reproductive History Menstrual Age of Menarche: 13 Questionnaire Thrive Questionnaire Date Thrive assessed: 07/16/22 MARK-7 AMB Questionnaire MARK-7 Date MARK - 7 assessed: 07/16/22 Source: Developed by Drs. Dani Mathews, Claudia Masters, Claudy Sandy and colleagues, with an educational ellis from [employer]. Review of Systems Const All systems reviewed & are unremarkable except as noted in HPI and below Eyes Reports no additional complaints, Denies change in vision and Denies other visual disturbances Card Denies chest pain at rest, Denies chest pain with activity, Denies edema, Denies irregular heart rhythm, Denies claudication, Denies dyspnea, Denies dyspnea on exertion, Denies orthopnea, Denies paroxysmal nocturnal dyspnea and Denies slow heart rate Resp Denies cough, Denies dyspnea and Denies dyspnea on exertion GI Denies abdominal pain, Denies change in bowel habits, Denies excessive flatus, Denies nausea and Denies vomiting Denies urinary incontinence, Denies urinary hesitancy and Denies urinary urgency Musc Denies abnormal gait, Denies atrophy, Denies deformity and Denies limited range of motion Skin/Breast Denies bleeding lesions, Denies changing lesions and Denies rash Neuro Denies abnormal gait and Denies lack of coordination Physical exam (Primary Care) Vital Signs: Last Vital Signs BP 152/90 H 11/21/22 13:13 BMI result Body Mass Index 30.2 Tobacco/Smoking Status: Tobacco use Status Tobacco use date assessed 07/16/22 11/21/22 13:19 Patient Tobacco Use Status Current everyday Tobacco 11/21/22 13:19 Tobacco use type Cigarette 11/21/22 13:19 e-Cigarette/Vaping Use Never Used 11/21/22 13:19 Thrive Assessment: Date of Thrive Assessment Date Thrive assessed 07/16/22 11/21/22 13:19 Const Orientation/consciousness: patient oriented x3 [facility] Head: Yes normal to inspection, Yes normocephalic and Yes atraumatic Ears: external ears normal Eyes General: appearance normal, both eyes and all related structures Eyelids: Yes eyelids normal Conjunctivae: conjunctivae normal Neck Neck: Yes normal visual inspection and Yes supple Resp Effort & Inspection: normal respiratory effort Auscultation: clear to auscultation bilaterally Cardio Jugular venous distension: no JVD Rate: regular rate Rhythm: regular rhythm Heart sounds: S1 normal heart sound present and S2 normal heart sound present GI Inspection: Yes normal to inspection Palpation (GI): Soft to palpation and nontender Auscultation: normal bowel sounds Skin General skin exam: no rashes or lesions noted Neuro General: patient oriented x3 and no focal motor deficits Extrem General: Yes full ROM Psych Appearance: grossly normal Assessment and Plan Assessment & Plan (1) Physical exam: Code(s): Z00.00 - Encounter for general adult medical examination without abnormal findings Plan: Repeat in a year (2) NICM (nonischemic cardiomyopathy): Code(s): I42.8 - Other cardiomyopathies Plan: Continue carvedilol. Follow-up with Cardiology. The goal is to not gain 5 lb in a week Orders: Orders XR hand LT 2V Today M79.642 - Pain in left hand XR hand RT 2V Today M79.641 - Pain in right hand OT Evaluation and Treatment Today M79.641 - Pain in right hand, M79.642 - Pain in left hand US abdomen comp w elastography Today R10.11 - Right upper quadrant pain Lipid Panel 6 Months E78.5 - Hyperlipidemia, unspecified Thyroid Stimulating Hormone 6 Months E03.9 - Hypothyroidism, unspecified Vitamin D 25-OH Total 6 Months E55.9 - Vitamin D deficiency, unspecified Comprehensive [place]. Panel Fast 6 Months I42.8 - Other cardiomyopathies NT-proBNP 6 Months I42.8 - Other cardiomyopathies Coding Level of Care Code Est Pt Prev Care 40-64y(64312) Diagnoses Physical exam Z00.00 NICM (nonischemic cardiomyopathy) I42.8 Time Spent (min) 33
== END 2022-11-21 13:35 | disposition home or self-care (01) ==
PROVIDERS: PCP Internal Medicine; Visit Provider Internal Medicine
DX: Z00.00 Encounter for general adult medical examination without abnormal findings (principal); I42.8 Other cardiomyopathies
CPT/HCPCS: 99396

== ENCOUNTER 2022-12-13 10:09 | Outpatient (REF) | payer OTHER, SELFPAY ==
--- NOTE | ~2022-12-13 | XR_ITS ---
EXAMINATION: XR BILATERAL HANDS CLINICAL INDICATION: Bilateral hand pain COMPARISON: None TECHNIQUE: 3 views each of bilateral hands FINDINGS: RIGHT HAND: Mild degenerative changes first carpometacarpal joint with joint space narrowing and hypertrophic change. Mild degenerative changes STT. Mild deformity of the right fifth metacarpal, possibly related to prior trauma, but of indeterminate etiology. Mild degenerative changes with hypertrophic change in scattered interphalangeal joints. LEFT HAND: Mild degenerative changes first carpometacarpal joint with joint space narrowing and hypertrophic change. Mild degenerative changes STT. Mild degenerative changes with hypertrophic change in scattered interphalangeal joints. XR/XR hand RT 2V IMPRESSION: Mild degenerative changes in bilateral hands. Mild deformity of the right fifth metacarpal, possibly related to prior trauma, but of indeterminate etiology. Recommend follow-up imaging in 10-14 days if fracture is suspected. Additional imaging with CT scan or MRI should be considered for better visualization as these modalities are much more sensitive for detection of fracture or other underlying pathology.
--- NOTE | ~2022-12-13 | XR_ITS ---
EXAMINATION: XR BILATERAL HANDS CLINICAL INDICATION: Bilateral hand pain COMPARISON: None TECHNIQUE: 3 views each of bilateral hands FINDINGS: RIGHT HAND: Mild degenerative changes first carpometacarpal joint with joint space narrowing and hypertrophic change. Mild degenerative changes STT. Mild deformity of the right fifth metacarpal, possibly related to prior trauma, but of indeterminate etiology. Mild degenerative changes with hypertrophic change in scattered interphalangeal joints. LEFT HAND: Mild degenerative changes first carpometacarpal joint with joint space narrowing and hypertrophic change. Mild degenerative changes STT. Mild degenerative changes with hypertrophic change in scattered interphalangeal joints. XR/XR hand LT 2V IMPRESSION: Mild degenerative changes in bilateral hands. Mild deformity of the right fifth metacarpal, possibly related to prior trauma, but of indeterminate etiology. Recommend follow-up imaging in 10-14 days if fracture is suspected. Additional imaging with CT scan or MRI should be considered for better visualization as these modalities are much more sensitive for detection of fracture or other underlying pathology.
--- NOTE | ~2022-12-13 | US_ITS ---
EXAMINATION: US ABDOMEN COMPLETE CLINICAL INFORMATION: Right upper quadrant pain. COMPARISON: Ultrasound abdomen 04/25/2009. TECHNIQUE: Real-time imaging of the abdominal viscera. FINDINGS: PANCREAS: Normal. ABDOMINAL AORTA: The proximal, mid, and distal segments are normal in caliber. INFERIOR VENA CAVA: Visualized portions are normal. LIVER: Liver is enlarged measuring 18.8 cm in span. The liver contour is normal. There is diffuse increased liver parenchymal echogenicity, consistent with hepatic steatosis with focal fatty sparing along the gallbladder fossa. No focal hepatic lesion. There is no intrahepatic biliary duct dilatation seen. GALLBLADDER: Normal. The gallbladder is physiologically distended without evidence of stones, sludge, polyps, wall thickening or pericholecystic fluid. COMMON BILE DUCT: Normal in caliber measuring 0.6 cm in diameter. RIGHT KIDNEY: Normal. No hydronephrosis. No renal calculi or focal parenchymal lesions. The kidney measures 10.0 cm in maximum dimension. LEFT KIDNEY: Pelviectasis without digna hydronephrosis. No renal calculi or focal parenchymal lesions. The kidney measures 9.7 cm in maximum dimension. SPLEEN: Normal. The spleen measures 9.9 cm in maximum dimension. FREE FLUID: None. US/US abdomen complete IMPRESSION: Hepatomegaly and hepatic steatosis. Left renal without digna hydronephrosis.
== END 2022-12-13 10:10 | disposition home or self-care (01) ==
LOC: HO.US 10:09
PROVIDERS: PCP Internal Medicine; Visit Provider Internal Medicine
DX: M79.641 Pain in right hand (principal); M79.642 Pain in left hand; R10.11 Right upper quadrant pain
CPT/HCPCS: 73120; 76700

== ENCOUNTER 2022-12-18 09:33 | Emergency (ER) | payer OTHER, SELFPAY ==
--- NOTE | ~2022-12-18 | XR_ITS ---
EXAMINATION: XR CHEST CLINICAL INFORMATION: Pleuritic chest pain. COMPARISON: 08/03/2021 chest radiographs. TECHNIQUE: Frontal view of the chest was obtained. FINDINGS: No significant abnormality is noted involving the heart, lungs, mediastinum, bony thorax or soft tissues. XR/XR chest 1V IMPRESSION: No acute cardiopulmonary process.
[2022-12-18 09:39] VITALS: BP 218/108; PULSE 69; RESP 18; TEMP 36.6; O2SAT 96; BMI 30.4
--- NOTE | 2022-12-18 09:43 | ECG_ITS ---
Test Reason : cp Blood Pressure : / mmHG Vent. Rate : 061 BPM Atrial Rate : 061 BPM P-R Int : 156 ms QRS Dur : 094 ms QT Int : 422 ms P-R-T Axes : 054 -11 038 degrees QTc Int : 424 ms Normal sinus rhythm Minimal voltage criteria for LVH, may be normal variant ( Ignacio product ) T wave abnormality, consider anterolateral ischemia Abnormal ECG When compared with ECG of 03-AUG-2021 10:23, No significant change was found Referred By: Generic ED Physician Electronically Signed By:ROSEY RIOS
--- NOTE | 2022-12-18 09:54 | ED_ITS ---
HPI - General Adult General Chief complaint: Upper Respiratory Symptoms Stated complaint: Diff Breathing Time Seen by Provider: 12/18/22 09:53 Source: patient and family Mode of arrival: ambulatory Limitations: language barrier History of Present Illness HPI narrative: Daughter interpreted and gave history. With deep breathing left chest pain. Started 4 days ago. Denies trauma, denies fever or cough, no history of [place], patient does not take a blood thinner, no history of DVT or clot. Onset (ago): day(s) Location: chest Severity: moderate Pain Consistency: constant Related Data Home Medications Medication Instructions Recorded Confirmed fenofibrate 54 mg tablet 54 mg PO DAILY 08/23/22 11/21/22 Previous Rx's Medication Instructions Recorded blood pressure test kit-large #1 ea 08/16/20 ([facility] Blood Pressure Monitor kit) calcium carbonate 600 mg calcium 600 mg PO BID 90 days #180 tabs 12/19/20 (1,500 mg) tablet cholecalciferol (vitamin D3) 50 50 mcg PO DAILY 90 days #90 caps 07/30/21 mcg (2,000 unit) capsule blood pressure monitor #1 ea 12/26/21 aspirin 81 mg tablet,delayed 81 mg PO DAILY 90 days #90 tabs 01/16/22 release carvedilol 25 mg tablet 25 mg PO BID 90 days #180 tabs 02/17/22 levothyroxine 150 mcg tablet 150 mcg PO DAILY #90 tabs 07/08/22 omeprazole 20 mg capsule,delayed 20 mg PO DAILY #30 caps 07/23/22 release atorvastatin 80 mg tablet 80 mg PO BEDTIME 90 days #90 tabs 10/11/22 lisinopril 30 mg tablet 30 mg PO DAILY 90 days #90 tabs 12/16/22 naproxen 500 mg tablet (Naprosyn) 500 mg PO BID #20 tabs 12/18/22 Allergies Allergy/AdvReac Type Severity Reaction Status Date / Time No Known Allergies Allergy Verified 12/18/22 09:39 [No Known Allergies*] Review of Systems Review of Systems: Yes all other systems are reviewed and are negative PMFSH Past Medical History Medical History Abnormal EKG Dyspnea Essential hypertension GERD (gastroesophageal reflux disease) History of colon polyps Hypothyroidism Hypovitaminosis D Mixed hyperlipidemia NICM (nonischemic cardiomyopathy) Nicotine dependence, cigarettes, uncomplicated Surgical History History of colonoscopy History of tubal ligation Family History Family History Father CVD (cardiovascular disease) Mother CVD (cardiovascular disease) Hypertension Maternal Grandmother No problems noted. Maternal Grandfather No problems noted. Paternal Grandmother No problems noted. Paternal Grandfather No problems noted. Social History Social History Housing: Apartment Alcohol intake: never Patient Tobacco Use Status: Current everyday Tobacco user Tobacco use type: Cigarette Cigarettes Per Day: 7 Years Smoked: onset 15yo, 1/2 x 42yrs, 20+pyh e-Cigarette/Vaping Use: Never Used Second Hand Smoke Exposure: No Advance Directives: No Advance Directives Information Provided: Yes service: No Current occupational status: unemployed Cognitive needs: No Hearing needs: No Vision needs: No Physical Exam ED Vital Signs: Vital Signs - 24 hr 12/18/22 09:39 12/18/22 10:58 12/18/22 11:14 Temperature 98 F Pulse Rate 69 71 53 Respiratory Rate 18 18 Blood Pressure 218/108 H 161/95 H 133/74 Pulse Oximetry 96 95 94 Oxygen Delivery Method Room Air Room Air 12/18/22 11:32 12/18/22 12:03 Temperature 98.1 F Pulse Rate 52 52 Respiratory Rate 18 16 Blood Pressure 136/71 131/72 Pulse Oximetry 95 95 Oxygen Delivery Method Room Air Room Air BMI result Body Mass Index 30.4 Const Other: anxious General: healthy appearing Nutritional Appearance: average body habitus Orientation/consciousness: oriented to person and patient oriented x3 Limitations: no limitations HENMT Head: Yes normal to inspection Ears: external ears normal General nose exam: Normal external nose present Mouth: Normal oral and palatal mucosa present and oropharynx normal Throat: Yes posterior oropharynx normal Eyes General: appearance normal, both eyes and all related structures Neck Neck: Yes normal visual inspection Chest Other: reprodcible chest pain on the left Resp Other: bilateral crackles Cardio Jugular venous distension: no JVD Rate: regular rate Rhythm: regular rhythm Heart sounds: S1 normal heart sound present and S2 normal heart sound present GI Inspection: Yes normal to inspection Palpation (GI): Soft to palpation, nontender and No hepatosplenomegaly present Auscultation: normal bowel sounds General: Yes no CVA tenderness Back/Spine/Pelvis Back: no CVA tenderness Skin General skin exam: no rashes or lesions noted Neuro General: oriented to person and patient oriented x3 Cranial nerves: Yes CN's II-XII intact bilaterally Motor exam (neuro): 5/5 motor strength present throughout Extrem General: Yes normal to inspection Psych Appearance: grossly normal Course Reevaluation(s) Reevaluation #1: negative troponin after days of chest pain, negative ddimer will start NSAIDs and dc home Time: 13:25 Medications Administered Discontinued Medications Generic Name Dose Route Start Last Admin Trade Name Freq PRN Reason Stop Dose Admin Ketorolac Tromethamine 15 mg 12/18/22 10:03 12/18/22 10:54 Ketorolac Tromethamine 15 Mg/Ml Vial IVPUSH 12/18/22 10:04 15 mg ONCE ONE Administration Labetalol HCl 10 mg 12/18/22 10:03 12/18/22 11:00 Labetalol Hcl 100 Mg/20 Ml Vial IVPUSH 12/18/22 10:04 10 mg ONCE ONE Administration Medical Decision Making Differential Diagnosis Differential Diagnoses: The differential diagnosis associated with the presen tation includes (cardiac ischemia, pneumonia, pulmonary embolus was all considered) Admission/Observation Consideration of admission/observation: Escalation of care including admission/observation considered (upon arrival this patient was considered for admission) Lab Data MDM Lab Attestation statement: I reviewed the patient's lab results. (negative troponin and negative ddimer) 12/18/22 10:16 12/18/22 10:16 Labs: Lab Results 12/18/22 12/18/22 12/18/22 Range/Units 10:16 10:16 10:16 WBC 7.5 (4.8-10.8) X10*3/uL RBC 4.92 (4.20-5.50) X10*6/uL Hgb 15.5 (12.0-16.0) g/dl Hct 43.5 (37.0-47.0) % MCV 88.4 (80.0-98.0) fL MCH 31.5 (27.0-33.0) pg MCHC 35.6 H (31.0-35.0) g/dl RDW 11.4 (11.0-16.0) % Plt Count 181 (160-400) X10*3/uL MPV 10.9 (9.4-12.3) fL Immature Gran % (Auto) 0.5 H (0.0-0.4) % Neut % (Auto) 62.1 (45-73) % Lymph % (Auto) 28.1 (20-40) % [place] % (Auto) 6.8 (2-11) % Eos % (Auto) 1.6 (0-4) % Baso % (Auto) 0.9 (0-2) % Lymph # (Auto) 2.1 (1.2-4.9) X10*3/uL [place] # (Auto) 0.5 (0.1-1.2) X10*3/uL Eos # (Auto) 0.1 (0.0-0.4) X10*3/uL Baso # (Auto) 0.1 (0.0-0.2) X10*3/uL Abs Immat Gran (auto) 0.04 H (0.00-0.03) X10*3/uL Absolute Neuts (auto) 4.7 (2.0-8.3) x10*3/uL Absolute Nucleated RBC 0.000 (0.0-0.012) X10*3/uL Nucleated RBC % (auto) 0.0 (0.0-0.2) /100WBC D-Dimer High Sensitivty < 150 NG/ML Sodium 141 (135-145) mmol/L Potassium 4.1 (3.3-5.1) mmol/L Chloride 108 (96-108) mmol/L Carbon Dioxide 26 (22-29) mmol/L Anion Gap 11 L (12-20) BUN 10 (9-16) mg/dL Creatinine 0.92 (0.5-1.4) mg/dL Estim Creat Clear Calc 61.6 Estimated GFR > 60 Random Glucose 110 (60-115) mg/dL Calcium 9.7 (8.4-10.2) mg/dL Troponin I High Sens (<3.5-17.0) ng/L 12/18/22 Range/Units 10:16 WBC (4.8-10.8) X10*3/uL RBC (4.20-5.50) X10*6/uL Hgb (12.0-16.0) g/dl Hct (37.0-47.0) % MCV (80.0-98.0) fL MCH (27.0-33.0) pg MCHC (31.0-35.0) g/dl RDW (11.0-16.0) % Plt Count (160-400) X10*3/uL MPV (9.4-12.3) fL Immature Gran % (Auto) (0.0-0.4) % Neut % (Auto) (45-73) % Lymph % (Auto) (20-40) % [place] % (Auto) (2-11) % Eos % (Auto) (0-4) % Baso % (Auto) (0-2) % Lymph # (Auto) (1.2-4.9) X10*3/uL [place] # (Auto) (0.1-1.2) X10*3/uL Eos # (Auto) (0.0-0.4) X10*3/uL Baso # (Auto) (0.0-0.2) X10*3/uL Abs Immat Gran (auto) (0.00-0.03) X10*3/uL Absolute Neuts (auto) (2.0-8.3) x10*3/uL Absolute Nucleated RBC (0.0-0.012) X10*3/uL Nucleated RBC % (auto) (0.0-0.2) /100WBC D-Dimer High Sensitivty NG/ML Sodium (135-145) mmol/L Potassium (3.3-5.1) mmol/L Chloride (96-108) mmol/L Carbon Dioxide (22-29) mmol/L Anion Gap (12-20) BUN (9-16) mg/dL Creatinine (0.5-1.4) mg/dL Estim Creat Clear Calc Estimated GFR Random Glucose (60-115) mg/dL Calcium (8.4-10.2) mg/dL Troponin I High Sens < 2.7 (<3.5-17.0) ng/L Independent Interpretation I performed an independent interpretation of an: EKG (sinus rate 60, biphasic ts v3-V5) and Plain X-Ray (CXR: large heart, no infiltrate) Independent Historian Clinical information obtained from an independent historian. History obtained from or confirmed by: Other (daughter) Tests considered The following testing was considered but not selected: i considered a CTA of the chest but patients ddimer was negative Prescription Management I considered prescription management with: Antibiotic (I considered antibiotic but no evidence of pneumonia) Discharge Plan Discharge Clinical Impression: Acute costochondritis Patient Disposition: Home, Self-Care Instructions: Costochondritis (ED) Prescriptions: New naproxen [Naprosyn] 500 mg tablet 500 mg PO BID Qty: 20 0RF No Action cholecalciferol (vitamin D3) 50 mcg (2,000 unit) capsule 50 mcg PO DAILY 90 Days Qty: 90 3RF aspirin 81 mg tablet,delayed release (DR/EC) 81 mg PO DAILY 90 Days Qty: 90 3RF carvedilol 25 mg tablet 25 mg PO BID 90 Days Qty: 180 3RF levothyroxine 150 mcg tablet 150 mcg PO DAILY Qty: 90 1RF omeprazole 20 mg capsule,delayed release(DR/EC) 20 mg PO DAILY Qty: 30 5RF atorvastatin 80 mg tablet 80 mg PO BEDTIME 90 Days Qty: 90 0RF lisinopril 30 mg tablet 30 mg PO DAILY 90 Days Qty: 90 1RF (DME) blood pressure test kit-large [[facility] Blood Pressure Monitr] Kit See Rx Instructions .ROUTE .MEDSUPPLY Qty: 1 0RF Rx Instructions: As directed calcium carbonate 600 mg calcium (1,500 mg) tablet 600 mg PO BID 90 Days Qty: 180 1RF (DME) blood pressure monitor Kit See Rx Instructions .Route Qty: 1 0RF Rx Instructions: As directed fenofibrate 54 mg tablet 54 mg PO DAILY Referrals: Natalia Bernabe MD [Primary Care Provider] - 1 week
[2022-12-18 10:19] LABS: MANUAL DIFF FLAG NO
[2022-12-18 10:21] LABS: Basophils Absolute Auto 0.1 X10*3/uL (0.0-0.2); Basophils Percent Auto 0.9 % (0-2); Eosinophils Absolute Auto 0.1 X10*3/uL (0.0-0.4); Eosinophils Percent Auto 1.6 % (0-4); Hematocrit 43.5 % (37.0-47.0); Hemoglobin 15.5 g/dl (12.0-16.0); Imm Gran Abs Auto 0.04 X10*3/uL (0.00-0.03); Imm Gran Pct Auto 0.5 % (0.0-0.4); Lymphocytes Absolute Auto 2.1 X10*3/uL (1.2-4.9); Lymphocytes Percent Auto 28.1 % (20-40); Mean Corpuscular HGB Conc 35.6 g/dl (31.0-35.0); Mean Corpuscular Hemoglobin 31.5 pg (27.0-33.0); Mean Corpuscular Volume 88.4 fL (80.0-98.0); Mean Platelet Volume 10.9 fL (9.4-12.3); Monocytes Absolute Auto 0.5 X10*3/uL (0.1-1.2); Monocytes Percent Auto 6.8 % (2-11); Neutrophils Absolute Auto 4.7 x10*3/uL (2.0-8.3); Neutrophils Percent Auto 62.1 % (45-73); Platelet Count 181 X10*3/uL (160-400); Red Blood Count 4.92 X10*6/uL (4.20-5.50); Red Cell Distribution Width 11.4 % (11.0-16.0); White Blood Count 7.5 X10*3/uL (4.8-10.8)
[2022-12-18 10:32] LABS: D Dimer High Sensitivity < 150 NG/ML
[2022-12-18 10:33] LABS: Anion Gap 11 (12-20); Blood Urea Nitrogen 10 mg/dL (9-16); Calcium 9.7 mg/dL (8.4-10.2); Carbon Dioxide 26 mmol/L (22-29); Chloride 108 mmol/L (96-108); Creatinine Clr Calc Pharmacy 61.6; Estimated Glomerular Filt Rate > 60; Glucose Random 110 mg/dL (60-115); Potassium 4.1 mmol/L (3.3-5.1); Sodium 141 mmol/L (135-145)
[2022-12-18 10:42] LABS: Troponin-I High Sensitivity < 2.7 ng/L (<3.5-17.0)
--- NOTE | 2022-12-18 10:51 | PC.NURSE ---
20 g IV inserted in Left AC. 2 attempts. Pt tolerated well. Flushes easily.
[2022-12-18] MEDS: Ketorolac Tromethamine 15 MG/ML VIAL IVPUSH (10:54)
[2022-12-18 10:58] VITALS: BP 161/95; PULSE 71; RESP 18; O2SAT 95
[2022-12-18] MEDS: Labetalol HCL 100 MG/20 ML VIAL 10 MG IVPUSH (11:00)
[2022-12-18 11:14] VITALS: BP 133/74; PULSE 53; O2SAT 94
[2022-12-18 11:32] VITALS: BP 136/71; PULSE 52; RESP 18; O2SAT 95
[2022-12-18 12:03] VITALS: BP 131/72; PULSE 52; RESP 16; TEMP 36.7; O2SAT 95
[2022-12-18 13:26] VITALS: O2SAT 95
--- NOTE | 2022-12-18 14:02 | PC.NURSE ---
cleared for discharge. Discharge instructions reviewed with pt and family member at bedside. no complaints/concerns at discharge.
== END 2022-12-18 14:05 | disposition home or self-care (01) ==
PROVIDERS: Emergency Provider Emergency Medicine; PCP Internal Medicine
DX: M94.0 Chondrocostal junction syndrome [Tietze] (principal); I10 Essential (primary) hypertension; E78.2 Mixed hyperlipidemia; F17.210 Nicotine dependence, cigarettes, uncomplicated; Z79.82 Long term (current) use of aspirin; Z79.899 Other long term (current) drug therapy
CPT/HCPCS: 36415; 71045; 80048; 84484; 85025; 85379; 93005; 96374; 96375; 99284; 99285; J1885

== ENCOUNTER 2022-12-27 11:00 | Outpatient (RCR) | payer OTHER, SELFPAY ==
--- NOTE | 2022-12-11 12:01 | MHC.OT.EP ---
[address] [phone] Occupational Therapy Plan of Care Patient Name: Marya Sanchez Date of Evaluation: 12/11/22 Diagnosis: Bilateral hand pain Pain Location: 6 Right hand to proximal forearm ache, sharp Pain Score: 6 Pain Scale Used: Numeric (0 - 10) Aggravating Factors: Forearm rotation, gripping Alleviating Factors: Heat Assessment: Pt is a 57 yo female who reports a right arm strain hammering a knife to cut frozen meat. She report pain in right hand and forearm and hand paresthesia with holding things in her right hand Today pt presents with S+S of traumatic lateral epicondylitis Pt previously doing all the cooking in the home she shares with her son and his family ,now with severe difficulty due to right forearm and hand pain with hand paresthesia with gripping. Pt with benefit from OT to improve right UE sx. for increased ease with daily activities Frequency and Duration: The patient will be seen 2x wk x 4 wks Short Term Goals: Indep with HEP and protection techniques with daily activities Dec complaint of pain at night with use of wrist orthosis. 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 Thank you once again for your referral.
--- NOTE | 2022-12-27 12:54 | MHC.OT.DC ---
[address] [phone] F: [phone] Occupational Therapy Discharge Note Patient Name: Marya Sanchez Provider: Natalia Akbar Diagnosis: Bilateral hand pain Date of Surgery: Date of Evaluation: 12/07/22 Date of Discharge: Treatments to Date: 3 Cancellations to Date: 0 No Shows to Date: 0 Discharge Status: Achieved Goals Improved Function Independent with HEP Discharge Summary: Good improvement in pain with avoiding heavy use as she remembers. 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 Pt reports bilateral hand pain resolved Electronically Signed By: Aileen Liu OT CHT CLT Reviewed/agree with student documentation: Therapist: Please Sign and return to therapist, thank you for your referral.
== END 2022-12-27 12:55 | disposition home or self-care (01) ==
LOC: HO.OT 11:00
PROVIDERS: PCP Internal Medicine; Visit Provider Internal Medicine
DX: M79.641 Pain in right hand (principal); M79.642 Pain in left hand
CPT/HCPCS: 97035; 97110; 97166

== ENCOUNTER 2023-05-20 08:30 | Outpatient (REF) | payer OTHER, SELFPAY ==
[2023-05-20 10:47] LABS: Alanine Aminotransferase 19 U/L (0-31); Albumin Level 4.3 g/dL (3.5-5.0); Alkaline Phosphatase 93 U/L (39-117); Anion Gap 10 (12-20); Aspartate Amino Transferase 18 U/L (5-31); Bilirubin Total 0.8 mg/dL (0.0-1.0); Blood Urea Nitrogen 11 mg/dL (9-16); Calcium 9.2 mg/dL (8.4-10.2); Carbon Dioxide 31 mmol/L (22-29); Chloride 104 mmol/L (96-108); Cholesterol 240 mg/dL (<200); Estimated Glomerular Filt Rate 58; Glucose Fasting 126 mg/dL (60-99); HDL Cholesterol 36 mg/dL (>40); Potassium 3.7 mmol/L (3.3-5.1); Sodium 141 mmol/L (135-145); Total Protein 7.3 g/dL (6.5-8.0); Triglycerides 412 mg/dL (<150)
[2023-05-20 11:04] LABS: Thyroid Stimulating Hormone 4.71 uIU/mL (0.32-4.0); Vitamin D 25-OH Total 12.9 ng/mL (>30)
[2023-05-22 20:48] LABS: NT-proBNP 42 pg/mL (<125)
== END 2023-05-20 08:31 | disposition home or self-care (01) ==
LOC: HO.LAB 08:30
PROVIDERS: PCP Internal Medicine; Visit Provider Internal Medicine
DX: E03.9 Hypothyroidism, unspecified (principal); E55.9 Vitamin D deficiency, unspecified; I42.8 Other cardiomyopathies; E78.5 Hyperlipidemia, unspecified
CPT/HCPCS: 36415; 80053; 80061; 82306; 83880; 84443

== ENCOUNTER 2023-05-27 09:26 | Outpatient (AMB) | payer OTHER, SELFPAY ==
--- NOTE | 2023-05-27 09:40 | A.OFFPC_ITS ---
Vital Signs 05/27/23 09:41 05/27/23 10:56 Height 5 ft 1 in Weight 162 lb BMI 30.6 BP 152/90 H 150/90 H Blood Pressure Location Lt brachial Lt brachial Position Sitting Sitting Intake Visit Reasons: bp Intake Note: Patient here for a follow up BP Tacker Elastic Band Required: No Accompanied by: Self / Same As Patient Allergies No Known Allergies [No Known Allergies*] Allergy (Verified 05/27/23 09:52) Medication List - Last Reconciled 05/27/23 by Natalia Akbar MD aspirin 81 mg PO DAILY 90 days atorvastatin 80 mg PO BEDTIME 90 days blood pressure monitor As directed blood pressure test kit-large ([facility] Blood Pressure Monitor kit) As directed calcium carbonate 600 mg PO BID 90 days cholecalciferol (vitamin D3) 50 mcg PO DAILY 90 days fenofibrate 54 mg PO DAILY levothyroxine 150 mcg PO DAILY lisinopril 30 mg PO DAILY 90 days naproxen (Naprosyn) 500 mg PO BID Tobacco use date assessed: 05/27/23 Dental Screening Dental Screen Date: 05/27/23 Did you have a dental visit in the last 12 months?: No Did you have a dental problem in the last 6 months where you did not have access to dental care?: No Was dental information given to patient?: Patient declined HPI HPI Comments History of Present Illness Details This is a 58-year-old female with hypertension, hypothyroidism, mixed hyperlipidemia and nonischemic cardiomyopathy that comes today for follow-up on her conditions. Blood pressure elevated today but she has not take her lisinopril yet. Blood pressure will be recheck in 3 weeks by nurse navigator. TSH mildly elevated and she has not compliant with any of her medications. This is why I will not change the dose of levothyroxine or any other. TSH will be repeated in 6 weeks as well as vitamin-D and fasting blood glucose which was also elevated. Patient denies polyuria, polydipsia or unintentional weight loss. Cholesterol and triglycerides also elevated for patient being noncompliant. Last echocardiogram done 2021 shows ejection fraction of 53% and she denies any shortness of breath or leg swelling. Increase to lb since August 2022. Follows up with cardiology for her cardiomyopathy and hypertension. Was advised to quit smoking. [facility] Medical History (Updated 05/27/23 @ 09:57 by Natalia Akbar MD) Nicotine dependence, cigarettes, uncomplicated History of colon polyps Abnormal EKG Dyspnea GERD (gastroesophageal reflux disease) Essential hypertension NICM (nonischemic cardiomyopathy) Hypothyroidism Mixed hyperlipidemia Hypovitaminosis D Surgical History History of colonoscopy History of tubal ligation Family History Father CVD (cardiovascular disease) Mother CVD (cardiovascular disease) Hypertension Maternal Grandmother No problems noted. Maternal Grandfather No problems noted. Paternal Grandmother No problems noted. Paternal Grandfather No problems noted. Social History Housing: Apartment Alcohol intake: never Patient Tobacco Use Status: Current everyday Tobacco user Tobacco use type: Cigarette Cigarettes Per Day: 7 Years Smoked: onset 15yo, 1/2 x 42yrs, 20+pyh e-Cigarette/Vaping Use: Never Used Second Hand Smoke Exposure: No service: No Current occupational status: unemployed Cognitive needs: No Hearing needs: No Vision needs: No Female Reproductive History Menstrual Age of Menarche: 13 Questionnaire PHQ-9 Over the last 2 weeks, how often have you been bothered by any of the following problems? 1. Little interest or pleasure in doing things: not at all 2. Feeling down, depressed, or hopeless: not at all 3. Trouble falling or staying asleep, or sleeping too much: not at all 4. Feeling tired or having little energy: not at all 5. Poor appetite or overeating: not at all 6. Feeling bad about yourself - or that you are a failure or have let yourself or your family down: not at all 7. Trouble concentrating on things, such as reading the newspaper or watching television: not at all 8. Moving or speaking so slowly that other people could have noticed. Or the opposite - being so fidgety or restless that you have been moving around a lot more than usual: not at all 9. Thoughts that you would be better off or of hurting yourself in some way: not at all Total score: 0 Depression Screening Interpretation: Negative Depression Screening Done: Yes 18198 - PHQ-9 Billing: Yes Source: Developed by Drs. Dani Mathews, Claudia Masters, Claudy Sandy and colleagues, with an educational ellis from [employer]. Thrive Questionnaire Date Thrive assessed: 05/27/23 I am a: Patient What is your living situation today?: I have a steady place to live Within the past 12 months, did the food you bought not last and you didn't have the money to get more?: Never true Within the past 12 months, did you worry whether your food would run out before you got money to buy more?: Never true Do you have trouble paying for medicines?: No Do you have trouble getting transportation to medical appointments?: No Do you have trouble paying your heating and electricity bill?: No Do you have trouble taking care of your child, family member or friend?: No Do you have trouble with day-to-day activities such as bathing, preparing meals, shopping, managing finances, etc.?: No Are you currently unemployed and looking for a job?: No Are you interested in more education?: No Please select the resources that you would like help with: None Currently or been in a relationship where the following occur: no concerns reported THRIVE Score: 0 AUDIT C Alcohol Use Questionnaire (AUDIT-C) 1. How often do you have a drink containing alcohol?: Never Total Score: 0 MARK-7 AMB Questionnaire MARK-7 Date MARK - 7 assessed: 05/27/23 Feeling nervous, anxious, or on edge: 2 = More than half the days Not being able to stop or control worryin = Not at all Worrying too much about different things: 0 = Not at all Trouble relaxin = Not at all Being so restless that it is hard to sit still: 0 = Not at all Becoming easily annoyed or irritable: 2 = More than half the days Feeling afraid as if something awful might happen: 0 = Not at all Total MARK-7 score (0-4 normal; 5-9 mild; 10-14 moderate; 15-21 severe): 4 Source: Developed by Drs. Dani Mathews, Claudia Masters, Claudy Sandy and colleagues, with an educational ellis from [employer]. MARK-7 Assessment Billing MARK-7 Assessment Tool: MARK-7 Assessment 71195 Review of Systems Const All systems reviewed & are unremarkable except as noted in HPI and below Eyes Reports no additional complaints, Denies change in vision and Denies other visual disturbances Card Denies chest pain at rest, Denies chest pain with activity, Denies edema, Denies irregular heart rhythm, Denies claudication, Denies dyspnea, Denies dyspnea on exertion, Denies orthopnea, Denies paroxysmal nocturnal dyspnea and Denies slow heart rate Resp Denies cough, Denies dyspnea and Denies dyspnea on exertion GI Denies abdominal pain, Denies change in bowel habits, Denies excessive flatus, Denies nausea and Denies vomiting Denies urinary incontinence, Denies urinary hesitancy and Denies urinary urgency Musc Denies abnormal gait, Denies atrophy, Denies deformity and Denies limited range of motion Skin/Breast Denies bleeding lesions, Denies changing lesions and Denies rash Neuro Denies abnormal gait and Denies lack of coordination Physical exam (Primary Care) Vital Signs: Last Vital Signs BP 152/90 H 05/27/23 09:41 BMI result Body Mass Index 30.6 Tobacco/Smoking Status: Tobacco use Status Tobacco use date assessed 05/27/23 05/27/23 09:48 Patient Tobacco Use Status Current everyday Tobacco 05/27/23 09:42 Tobacco use type Cigarette 05/27/23 09:42 e-Cigarette/Vaping Use Never Used 05/27/23 09:42 PHQ-9: PHQ-9 Score PHQ-9: Total score 0 05/27/23 09:55 Depression Screening Interpretation: Negative Thrive Assessment: Date of Thrive Assessment Date Thrive assessed 05/27/23 05/27/23 09:48 Currently or been in a relationship where the following occur: no concerns re ported [facility] Head: Yes normal to inspection, Yes normocephalic and Yes atraumatic Ears: external ears normal General nose exam: Normal external nose present and No nasal discharge present Face and sinus: Yes sinuses nontender Mouth: lip normal Eyes Other: puffy eyes Neck Neck: Yes normal visual inspection and Yes supple Resp Effort & Inspection: normal respiratory effort Auscultation: clear to auscultation bilaterally Cardio Jugular venous distension: no JVD Rate: regular rate Rhythm: regular rhythm Heart sounds: Murmur heart sound present Extrem General: Yes full ROM Assessment and Plan Assessment & Plan (1) NICM (nonischemic cardiomyopathy): Code(s): I42.8 - Other cardiomyopathies Plan: The goal is to not gain 5 lb in a week. Follow-up with Cardiology. (2) Essential hypertension: Code(s): I10 - Essential (primary) hypertension Plan: The compliant with lisinopril. Blood pressure goal is equal or less than 130/80. Recheck blood pressure with nurse navigator in 3 weeks. (3) Mixed hyperlipidemia: Code(s): E78.2 - Mixed hyperlipidemia Plan: Be compliant with statins and fibrates. Start low-cholesterol diet. (4) Hypothyroidism: Code(s): E03.9 - Hypothyroidism, unspecified Qualifiers: Hypothyroidism type: unspecified Qualified Code(s): E03.9 - Hypothyroidism, unspecified Plan: Continue levothyroxine. Repeat TSH in 6 weeks. Orders: Orders Thyroid Stimulating Hormone 6 Weeks E03.9 - Hypothyroidism, unspecified Comprehensive [place]. Panel Fast 6 Weeks I10 - Essential (primary) hypertension Vitamin D 25-OH Total 6 Weeks E55.9 - Vitamin D deficiency, unspecified NT-proBNP Today I42.8 - Other cardiomyopathies Referrals Gastroenterology Referral D12.6 - Benign neoplasm of colon, unspecified Medications: Refilled cholecalciferol (vitamin D3) 50 mcg PO DAILY 90 days 90 caps 3RF E55.9 - Vitamin D deficiency, unspecified calcium carbonate 600 mg PO BID 90 days 180 tabs 1RF Coding Level of Care Code Est Pt Level 4 (20808) Diagnoses NICM (nonischemic cardiomyopathy) I42.8 Essential hypertension I10 Mixed hyperlipidemia E78.2 Hypothyroidism, unspecified type E03.9 Hypothyroidism type: unspecified Additional Codes MARK-7 Assessment Billing - MARK-7 Assessment Tool: MARK-7 Assessment 17831 ([id number]) Time Spent (min) 23
[2023-05-27 09:41] VITALS: BP 152/90; BMI 30.6
[2023-05-27 10:56] VITALS: BP 150/90
== END 2023-05-27 10:04 | disposition home or self-care (01) ==
PROVIDERS: PCP Internal Medicine; Visit Provider Internal Medicine
DX: I42.8 Other cardiomyopathies (principal); I10 Essential (primary) hypertension; E78.2 Mixed hyperlipidemia; E03.9 Hypothyroidism, unspecified
CPT/HCPCS: 99214